=== PATIENT | male | born 1995 | race Two or more races ===

== ENCOUNTER → 2024-11-14 | Outpatient (CLI) | payer BC, SELFPAY ==
[2024-11-14 12:00] LABS: Basophils # (Auto) 0.1 Thou/mm3 (0.0-0.2); Basophils % (Auto) 1 % (0-2.5); Eosinophils # (Auto) 0.2 Thou/mm3 (0.0-0.5); Eosinophils % (Auto) 5 % (0-10); Hematocrit 45.4 % (41.0-53.0); Hemoglobin 15.9 g/dL (13.5-16.0); Immature Granulocytes % (Auto) 0 % (0-0); Immature Granulocytes Auto 0.01 Thou/mm3 (0.00-0.00); Lymphocytes % (Auto) 23 % (10-50); Mean Corpuscular Volume 89 fL (80-100); Monocytes # (Auto) 0.6 Thou/mm3 (0.0-0.8); Monocytes % (Auto) 14 % (0-12); Neutrophils # (Auto) 2.5 Thou/mm3 (1.8-7.7); Neutrophils % (Auto) 57 % (37-80); Nucleated Red Blood Cell % 0 /100 WBC (0); Platelet Count 247 Thou/mm3 (140-440); RDW Standard Deviation 39.5 fL (35.1-43.9); Red Blood Count 5.13 Miln/mm3 (4.50-5.90); White Blood Count 4.3 Thou/mm3 (3.8-10.6)
[2024-11-14 12:08] LABS: Glucose Estimated Average 85 mg/dL (80-131); Hemoglobin A1C 4.6 % Hgb (4.8-6.0)
[2024-11-14 12:16] LABS: Alanine Aminotransferase 41 U/L (10-49); Albumin, Serum 4.5 gm/dL (3.5-5.0); Albumin/Globulin Ratio 1.8 (1.2-2.2); Alkaline Phosphatase 84 U/L (46-116); Anion Gap 8 (7-16); Aspartate Amino Transferase 25 U/L (0-34); BUN/Creatinine Ratio 7 Ratio (12-20); Blood Urea Nitrogen 7 mg/dL (9-23); Calcium 8.8 mg/dL (8.3-10.6); Calcium (Corrected) 8.8 mg/dL (8.5-10.1); Carbon Dioxide 30.7 mMol/L (20.0-31.0); Cardiac Risk Estimate 3.7 RATIO (4.0-6.7); Chloride 101 mMol/L (98-107); Cholesterol 175 mg/dL (132-200); Free T4 (Free Thyroxine) 0.96 ng/dL (0.89-1.76); Globulin 2.5 gm/dL (2.3-3.5); Glucose 96 mg/dL (74-106); HDL Cholesterol 47 mg/dL (40-60); LDL Cholesterol,Calculated 113 mg/dL (0-130); Osmolality,Calculated 277 (275-295); Potassium 4.1 mMol/L (3.4-5.1); Sodium 140 mMol/L (136-145); Thyroid Stimulating Hormone 10.25 uIU/mL (0.55-4.78); Triglycerides 73 mg/dL (30-150); eGFR > 60 See Note
[2024-11-14 12:19] LABS: Vitamin D 25 Hydroxy Total 33.7 ng/mL (7.3-40.2)
== END | disposition home or self-care (01) ==
LOC: COPL 11:01
PROVIDERS: PCP Internal Medicine; Referring Provider Internal Medicine; Visit Provider Internal Medicine
DX: Z00.00 Encounter for general adult medical examination without abnormal findings (principal); E55.9 Vitamin D deficiency, unspecified
CPT/HCPCS: 36415; 80053; 80061; 82306; 83036; 84439; 84443; 85025

== ENCOUNTER → 2024-11-29 | Outpatient (CLI) | payer BC, SELFPAY ==
--- NOTE | 2024-11-29 13:00 | XR_ITS ---
Examination: Abdomen sonogram, complete Date and time of exam: November 29, 2024 1316 hours INDICATIONS: Right-sided abdominal pain 5 months. Technique: Multiple real-time grayscale transabdominal sonographic images of the abdomen have been obtained. Findings: Normal gallbladder Normal common bile duct 0.2 cm Pancreatic head 1.8 cm Aorta not enlarged. Liver 12.9 cm fatty infiltration Normal hepatopedal portal venous flow Patent IVC Right kidney 11.0 cm cortex 1.8 cm Left kidney 11.1 cm renal cortex 2.0 cm Spleen 10.6 cm IMPRESSION: Normal gallbladder Fatty liver
--- NOTE | 2024-11-29 13:59 | XR_ITS ---
Examination: Lumbar spine, 5 views Technique: Lumbar spine AP, lateral, coned lateral lower lumbar spine, bilateral obliques 5 views Exam date and time: November 29, 2024 1417 hours Comparison 03/25 2020 INDICATIONS: Low back pain beginning 6 months ago. FINDINGS: Adequate alignment lumbar vertebral bodies No lumbar fracture. No spondylolisthesis Mild disc narrowing L5-S1 IMPRESSION: Mild disc narrowing L5-S1
--- NOTE | 2024-11-29 13:59 | XR_ITS ---
Examination: Abdomen AP single view Technique: AP portable supine abdomen, single view Exam date and time: November 29, 2024 1417 hours INDICATIONS: Abdominal pain beginning 6 months ago. FINDINGS: Moderate stool in the right and transverse colon No obstruction No free air IMPRESSION: Nonobstructive bowel gas pattern
--- NOTE | 2024-11-29 13:59 | XR_ITS ---
Examination: Ribs, right, with PA chest, 5 views Technique: Chest PA, RIBS AP, RPO, LPO, AP coned lower ribs 5 views Exam date and time: November 29, 2024 1417 hours Findings: Normal heart size No pneumothorax Adequate bone density No acute rib fractures IMPRESSION: No pneumothorax pulmonary contusion or hemothorax No acute rib fractures
== END | disposition home or self-care (01) ==
PROVIDERS: PCP Internal Medicine; Referring Provider Internal Medicine; Visit Provider Internal Medicine
DX: K76.0 Fatty (change of) liver, not elsewhere classified (principal); R10.9 Unspecified abdominal pain; M48.07 Spinal stenosis, lumbosacral region
CPT/HCPCS: 71101; 72110; 74018; 76700

== ENCOUNTER → 2024-12-25 | Outpatient (CLI) | payer BC, SELFPAY ==
[2024-12-25 11:44] LABS: Free T4 (Free Thyroxine) 0.87 ng/dL (0.89-1.76); Thyroid Stimulating Hormone 15.72 uIU/mL (0.55-4.78)
== END | disposition home or self-care (01) ==
LOC: COPL 10:45
PROVIDERS: PCP Internal Medicine; Referring Provider Internal Medicine; Visit Provider Internal Medicine
DX: E03.9 Hypothyroidism, unspecified (principal)
CPT/HCPCS: 36415; 84439; 84443

== ENCOUNTER → 2025-02-28 | Outpatient (CLI) | payer BC, SELFPAY ==
[2025-02-28 12:00] LABS: Free T4 (Free Thyroxine) 1.04 ng/dL (0.89-1.76); Thyroid Stimulating Hormone 9.18 uIU/mL (0.55-4.78)
== END | disposition home or self-care (01) ==
LOC: COPL 10:29
PROVIDERS: PCP Internal Medicine; Referring Provider Internal Medicine; Visit Provider Internal Medicine
DX: E03.9 Hypothyroidism, unspecified (principal)
CPT/HCPCS: 36415; 84439; 84443

== ENCOUNTER → 2025-07-02 | Outpatient (CLI) | payer BC, SELFPAY ==
[2025-07-02 15:08] LABS: Free T4 (Free Thyroxine) 1.00 ng/dL (0.89-1.76); Thyroid Stimulating Hormone 20.50 uIU/mL (0.55-4.78)
== END | disposition home or self-care (01) ==
LOC: COPL 14:05
PROVIDERS: PCP Internal Medicine; Referring Provider Internal Medicine; Visit Provider Internal Medicine
DX: E03.9 Hypothyroidism, unspecified (principal)
CPT/HCPCS: 36415; 84439; 84443